=== PATIENT | female | born 1950 | race Caucasian/White ===

== ENCOUNTER 2022-04-27 01:15 | Emergency (ER) | payer OTHER ==
[~2022-04-27] VITALS: Ht 162.6 cm; Wt 126.1 kg
[2022-04-27 01:22] VITALS: BP 114/61
--- NOTE | 2022-04-27 01:22 | NUR ---
PT [facility] ALS. TAKEN TO BED 1
--- NOTE | 2022-04-27 01:23 | NUR ---
Dr. Gupta examining patient.
--- NOTE | 2022-04-27 01:25 | NUR ---
71 YO F BIBA FROM HOME WITH C/C OF SOB WITH WHEEZING. PER EMS ON ARRIVAL PT WAS SATING AT 95%, GIVEN A BREATHING TX WITH SOB RELIEF. REPORTS ANY ACTIVITY CAUSES DESAT. PT STATES SHE WAS ON CRUISE 2 DAYS AGO, EVERYONE AT HOME IS NOW SICK. +COUGH +CONGESTION. PT STATES SHE TESTED (+) FOR COVID THIS AM. O2 SAT = 92% ON R/A. HX:HTN, ASTHMA RX:QVAR, ALBUTEROL, COUMADIN NKA
[2022-04-27] MEDS ORDERED: KETOROLAC 30 MG/ML VIAL IVP ONE (01:30)
--- NOTE | 2022-04-27 01:35 | NUR ---
SWABS OBTAINED AND SENT TO LAB
[2022-04-27 01:53] LABS: BASOPHILS # (AUTO) 0.1 K/uL (0.00-0.22); BASOPHILS % (AUTO) 0.9 % (0.0-2.0); EOSINOPHILS # (AUTO) 0.2 K/uL (0-0.4); HEMATOCRIT 35.3 % (36-48); HEMOGLOBIN 11.2 g/dL (12.0-16.0); LYMPHOCYTES % (AUTO) 19.1 % (20.5-51.1); MEAN CORPUSCULAR HEMOGLOBIN 26 pg (27-31); MEAN CORPUSCULAR HGB CONC 32 g/dL (33-37); MEAN CORPUSCULAR VOLUME 81.7 fL (80-94); MONOCYTES % (AUTO) 17.9 % (1.7-9.3); NEUTROPHILS # (AUTO) 3.2 K/uL (1.8-7.7); NEUTROPHILS % (AUTO) 59.1 % (42.2-75.2); PLATELET COUNT (AUTO) 257 K/uL (140-450); RED BLOOD CELL COUNT(AUTO) 4.32 MIL/uL (4.20-5.40); RED CELL DISTRIBUTION WIDTH 16.3 % (11.6-13.7); WHITE BLOOD COUNT (AUTO) 5.4 K/uL (4.8-10.8)
--- NOTE | 2022-04-27 01:59 | NUR ---
0140 ABG DRAWN ON ROOM AIR. PLACED PT BACK ON 3LNC POST ABG RESULTS
[2022-04-27 02:04] LABS: ALBUMIN 2.5 g/dL (3.4-5.0); ANION GAP 11.8 (8-16); CARBON DIOXIDE 30.8 mmol/L (21-32); CREATININE 0.8 mg/dL (0.6-1.3); POTASSIUM 3.6 mmol/L (3.5-5.1); TOTAL BILIRUBIN 0.7 mg/dL (0.0-1.0)
[2022-04-27] MEDS ORDERED: AZITHROMYCIN 500 MG in DEXTROSE 5% 250 ML IV ONE (03:10)
[2022-04-27] MEDS ORDERED: OSELTAMIVIR PHOSPHATE 75 MG CAP PO ONE (03:10)
[2022-04-27] MEDS ORDERED: AZITHROMYCIN 500 MG INJ VIAL IV ONE (03:24)
[2022-04-27] MEDS ORDERED: cefTRIAXone 1,000 MG VIAL ONE (03:24)
--- NOTE | 2022-04-27 03:30 | NUR ---
TO CT VIA [facility]
--- NOTE | 2022-04-27 03:32 | NUR ---
Dr. Gupta examining patient.
--- NOTE | 2022-04-27 04:15 | NUR ---
STRAIGHT CATHED FOR UA, SENT TO LAB
[2022-04-27 04:47] LABS: APPEARANCE,URINE CLEAR (CLEAR); BILIRUBIN,URINE NEGATIVE (NEGATIVE); BLOOD, URINE 3+ (NEGATIVE); COLOR,URINE YELLOW (YELLOW); LEUKOCYTE ESTERASE ,URINE NEGATIVE (NEGATIVE); NITRITE, URINE NEGATIVE (NEGATIVE); PH,URINE 5.5 (5.0-9.0); UGLUCOSE NEGATIVE (NEGATIVE)
[2022-04-27 04:54] LABS: WBC,URINE 0-5 /HPF (0-5)
[2022-04-27 04:55] LABS: RBC,URINE 11-20 (MOD) /HPF (0-5)
--- NOTE | 2022-04-27 05:55 | NUR ---
INCONTINENT OF LARGE AMOUNT OF URINE. MADALYN CARE GIVEN, LINENS CHANGED
--- NOTE | 2022-04-27 07:22 | NUR ---
Received report from GEOFF Gilbert. Assumed care at this time.
--- NOTE | 2022-04-27 09:15 | NUR ---
[facility] at bedside for report.
--- NOTE | 2022-04-27 09:24 | NUR ---
Called [facility] to give report, no answer.
[2022-04-27 09:40] VITALS: BP 134/78
--- NOTE | 2022-04-27 09:40 | NUR ---
[facility] LEAVING ED WITH PT VIA [facility] AT THIS TIME.
--- NOTE | 2022-04-27 10:00 | NUR ---
TELEPHONE REPORT GIVEN TO GEOFF BRYANT AT [facility].
== END 2022-04-27 09:40 | disposition short-term general hospital (02) ==
LOC: MED 01:15
DX: U07.1 COVID-19 (principal); J18.9 Pneumonia, unspecified organism; J45.909 Unspecified asthma, uncomplicated; I10 Essential (primary) hypertension; Z79.899 Other long term (current) drug therapy
CPT/HCPCS: 36415; 36600; 71045; 80053; 81001; 82803; 83605; 83880; 84484; 85025; 87040; 87086; 87426; 87804; 96365; 96367; 96375; 99291; J0456; J0696; J1885; Q0092